=== PATIENT | male | born 1955 | race Caucasian/White ===

== ENCOUNTER 2016-11-07 21:25 | Emergency (ER) | payer OTHER ==
[~2016-11-07] VITALS: Ht 182.9 cm; Wt 72.6 kg
[2016-11-07 21:30] VITALS: BP 129/98
[2016-11-08] MEDS ORDERED: CYCLOBENZAPRINE 10 MG TABLET ONE (00:18)
[2016-11-08] MEDS ORDERED: IBUPROFEN 400 MG TABLET ONE (00:18)
[2016-11-08] MEDS ORDERED: predniSONE 20 MG TABLET ONE (00:19)
[2016-11-08] MEDS ORDERED: IBUPROFEN 400 MG TABLET PO ONE (00:30)
[2016-11-08] MEDS ORDERED: CYCLOBENZAPRINE 10 MG TABLET PO ONE (00:30)
[2016-11-08] MEDS ORDERED: predniSONE 20 MG TABLET PO ONE (00:30)
== END 2016-11-08 00:26 | disposition home or self-care (01) ==
LOC: ER 21:36
DX: M54.32 Sciatica, left side (principal)
CPT/HCPCS: 99284; A4606; J7512; Z7610

== ENCOUNTER 2017-01-15 04:02 | Emergency (ER) | payer OTHER ==
[~2017-01-15] VITALS: Ht 172.7 cm; Wt 72.6 kg
--- NOTE | 2017-01-15 04:25 | NUR ---
Anirudh skaggs in ED - 01/15/17 at [address] HERRERA AT [facility].
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
--- NOTE | 2017-01-15 04:26 | NUR ---
DR. HERRERA AT BEDSIDE FOR EVAL.
[2017-01-15] MEDS ORDERED: IBUPROFEN 400 MG TABLET PO ONE (04:30)
[2017-01-15] MEDS ORDERED: IBUPROFEN 400 MG TABLET ONE (04:36)
--- NOTE | 2017-01-15 05:23 | NUR ---
PT TO RADIOLOGY
--- NOTE | 2017-01-15 05:37 | NUR ---
PT RETURNED FROM RADIOLOGY
--- NOTE | 2017-01-15 05:37 | NUR ---
patient back from radiology.
--- NOTE | 2017-01-15 05:55 | NUR ---
Patient discharged to home in stable condition. Written and verbal after care instructions given. Patient verbalizes understanding of instruction. ambulatory with a steady gait.
[2017-01-15 05:56] VITALS: BP 132/78
== END 2017-01-15 05:56 | disposition home or self-care (01) ==
LOC: ER 04:05
DX: M25.551 Pain in right hip (principal); M54.31 Sciatica, right side; F10.10 Alcohol abuse, uncomplicated; Z98.890 Other specified postprocedural states
CPT/HCPCS: 73502; 73564; 99284; A4606; Z7610

== ENCOUNTER 2017-01-15 07:17 | Emergency (ER) | payer OTHER ==
[~2017-01-15] VITALS: Ht 182.9 cm; Wt 72.6 kg
[2017-01-15 07:22] VITALS: BP 127/66
[2017-01-15] MEDS ORDERED: HYDROCODONE/APAP 5/325MG 1 EACH TABLET ONE (07:28)
[2017-01-15] MEDS ORDERED: HYDROCODONE/APAP 5/325MG 1 EACH TABLET PO ONE (07:30)
== END 2017-01-15 07:37 | disposition home or self-care (01) ==
LOC: ER 07:19
DX: M25.551 Pain in right hip (principal); M25.552 Pain in left hip; F10.10 Alcohol abuse, uncomplicated; Z98.890 Other specified postprocedural states
CPT/HCPCS: 99283; A4606; Z7610

== ENCOUNTER 2017-02-07 21:02 | Emergency (ER) | payer OTHER ==
[~2017-02-07] VITALS: Ht 175.3 cm; Wt 68.0 kg
[2017-02-07] MEDS ORDERED: IBUPROFEN 400 MG TABLET PO ONE (22:30)
[2017-02-07] MEDS ORDERED: IBUPROFEN 400 MG TABLET ONE (22:40)
[2017-02-07 22:44] VITALS: BP 120/91
--- NOTE | 2017-02-07 22:44 | NUR ---
Patient given written and verbal discharge instructions. Patient verbalizes understanding of instructions. Patient is ambulatory with steady gait. Refuses offer of prison placement. Patient given list of available shelters in surrounding area.
== END 2017-02-07 22:45 | disposition home or self-care (01) ==
LOC: ER 21:04
DX: M25.552 Pain in left hip (principal); G89.29 Other chronic pain; F10.10 Alcohol abuse, uncomplicated; Z98.890 Other specified postprocedural states
CPT/HCPCS: 73501; 99284; A4606; Z7610; 73020

== ENCOUNTER 2017-02-13 15:08 | Emergency (ER) | payer OTHER ==
[~2017-02-13] VITALS: Ht 175.3 cm; Wt 68.0 kg
[2017-02-13 15:08] VITALS: BP 119/89
--- NOTE | 2017-02-13 15:38 | NUR ---
CALLED TO TRIAGE,NO ANSWER
== END 2017-02-13 16:35 | disposition home or self-care (01) ==
LOC: ER 15:09
DX: G89.29 Other chronic pain (principal); M25.552 Pain in left hip; F10.10 Alcohol abuse, uncomplicated
CPT/HCPCS: 99283; A4606; Z7610

== ENCOUNTER 2019-01-31 14:30 | Emergency (ER) | payer OTHER ==
[~2019-01-31] VITALS: Ht 175.3 cm; Wt 63.5 kg
[2019-01-31 15:22] VITALS: BP 140/98
[2019-01-31] MEDS ORDERED: KETOROLAC TROMETHAMINE INJ 60 MG/2 ML VIAL IM ONE (16:00)
--- NOTE | 2019-01-31 16:01 | NUR ---
Social service consult requested by KENNEDY Nguyen for homelessness. Pt. came to [facility] complaining of shoulder pain. JADA met with the pt. bedside. Pt. is alert and oriented x 4. Pt. appeared unkempt and disheveled. Pt. declined to speak with SW and appeared to be in a hurry to leave the hospital. Pt. refused to sign Homeless waiver. CHEMA Garcia and JADA signed waiver as witnesses regarding pt. refusing to sign.
== END 2019-01-31 16:14 | disposition left against medical advice (07) ==
LOC: ER 14:31
DX: M25.512 Pain in left shoulder (principal); M41.84 Other forms of scoliosis, thoracic region; F10.10 Alcohol abuse, uncomplicated; Y90.9 Presence of alcohol in blood, level not specified; Z59.0 Homelessness; Z98.890 Other specified postprocedural states; Z60.2 Problems related to living alone
CPT/HCPCS: 73030-TC

== ENCOUNTER 2019-11-08 23:15 | Emergency (ER) | payer OTHER, MEDICARE ==
[~2019-11-08] VITALS: Ht 175.3 cm; Wt 68.0 kg
[2019-11-08 23:39] VITALS: BP 123/81
== END 2019-11-08 23:58 | disposition home or self-care (01) ==
LOC: ER 23:18
DX: L08.89 Other specified local infections of the skin and subcutaneous tissue (principal); Z98.890 Other specified postprocedural states; Z60.2 Problems related to living alone

== ENCOUNTER 2019-11-12 22:33 | Emergency (ER) | payer MEDICARE, OTHER ==
[~2019-11-12] VITALS: Ht 180.3 cm; Wt 70.3 kg
[2019-11-12 22:33] VITALS: BP 132/64
--- NOTE | 2019-11-12 23:05 | NUR ---
PT DENIES BEING HOMELESS REPORTS THAT HE LIVES IN [place] WITH A FRIEND.
== END 2019-11-12 23:06 | disposition home or self-care (01) ==
LOC: ER 22:40
DX: S80.862A Insect bite (nonvenomous), left lower leg, initial encounter (principal); L03.116 Cellulitis of left lower limb; Z98.890 Other specified postprocedural states; Z60.2 Problems related to living alone; W57.XXXA Bitten or stung by nonvenomous insect and other nonvenomous arthropods, initial encounter; Y93.89 Activity, other specified; Y92.89 Other specified places as the place of occurrence of the external cause; Y99.8 Other external cause status

== ENCOUNTER 2019-12-05 07:14 | Emergency (ER) | payer MEDICARE, OTHER ==
[~2019-12-05] VITALS: Ht 180.3 cm; Wt 70.3 kg
[2019-12-05 07:17] VITALS: BP 117/85
--- NOTE | 2019-12-05 07:28 | NUR ---
SEEN AND EXAMINED BY .
--- NOTE | 2019-12-05 07:50 | NUR ---
Patient given written and verbal discharge instructions. Patient verbalizes understanding of instructions. Patient is ambulatory with steady gait. Refuses offer of skilled nursing placement. Patient given list of available shelters in surrounding area.
== END 2019-12-05 07:52 | disposition home or self-care (01) ==
LOC: ER 07:17
DX: L03.113 Cellulitis of right upper limb (principal); Z98.890 Other specified postprocedural states; Z59.0 Homelessness

== ENCOUNTER 2021-03-22 12:02 | Emergency (ER) | payer MEDICARE, OTHER ==
[~2021-03-22] VITALS: Ht 180.3 cm; Wt 70.3 kg
[2021-03-22 12:22] VITALS: BP 118/83
[2021-03-22] MEDS ORDERED: SULF1TAB48 PO (13:40)
[2021-03-22] MEDS ORDERED: MUPI22OI2 TP (13:40)
[2021-03-22] MEDS ORDERED: CEPH500C2 PO (13:40)
== END 2021-03-22 20:41 | disposition home or self-care (01) ==
LOC: ER 12:07
DX: L03.114 Cellulitis of left upper limb (principal); L03.113 Cellulitis of right upper limb; Z60.2 Problems related to living alone

== ENCOUNTER 2021-06-29 21:27 | Inpatient (IN) | payer MEDICARE, OTHER ==
[~2021-06-29] VITALS: Ht 180.3 cm; Wt 82.6 kg
[~2021-06-29 21:27] MED LIST: CEPH500C2 PO; MUPI22OI2 TP; SULF1TAB48 PO
--- NOTE | 2021-06-29 21:45 | NUR ---
[id number] [facility] C/O SOB X 2 WEEKS. PATIENT IS ALERT, ORIENTED X4. HAS SWELLING AND REDNESS ON BOTH UPPER AND LOWER EXTREMITIES. PLACED COMFORTABLY IN BED. VITALS CHECKED.
--- NOTE | 2021-06-29 21:48 | NUR ---
EKG DONE AT BEDSIDE
--- NOTE | 2021-06-29 21:52 | NUR ---
CXR DONE AT BEDSIDE
--- NOTE | 2021-06-29 22:32 | NUR ---
IV CANNULA G20 INSERTED ON LEFT AC. BLOOD DRAWN AND GIVEN TO PETROLEUM REFINING EQUIPMENT OPERATOR
--- NOTE | 2021-06-29 22:33 | NUR ---
COVID SWAB DONE AND GIVEN TO EMBROIDERY ASSISTANT
[2021-06-29 22:49] LABS: BASOPHILS % (AUTO) 0.3 % (0.0-2.0); HEMATOCRIT 44 % (39-51); HEMOGLOBIN 14.5 g/dL (13.5-17.5); LYMPHOCYTES # (AUTO) 0.9 K/uL (0.8-4.8); LYMPHOCYTES % (AUTO) 14.8 % (20.0-44.0); MEAN CORPUSCULAR HGB CONC 33 g/dl (31.0-36.0); MEAN CORPUSCULAR VOLUME 97 fL (80-96); MONOCYTES # (AUTO) 0.5 K/uL (0.1-1.30); MONOCYTES % (AUTO) 8.1 % (2.0-12.0); NEUTROPHILS # (AUTO) 4.5 K/uL (1.8-8.9); NEUTROPHILS % (AUTO) 75.8 % (43.0-81.0); PLATELET COUNT (AUTO) 256 K/uL (150-450); RED BLOOD CELL COUNT(AUTO) 4.55 MIL/uL (4.5-6.0); WHITE BLOOD COUNT (AUTO) 5.9 K/uL (4.3-11.0)
[2021-06-29] MEDS ORDERED: CEFTRIAXONE 1GM BAG (ER ONLY) 50 ML IV ONE (22:51)
[2021-06-29] MEDS ORDERED: AZITHROMYCIN 500 MG VIAL ONE (22:56)
[2021-06-29] MEDS ORDERED: CEFTRIAXONE 1GM BAG (ER ONLY) 1 GM/50 ML PIGGYBACK IV ONE (23:00)
[2021-06-29] MEDS ORDERED: AZITHROMYCIN 500 MG in IV D5W 250 ML IV ONE (23:00)
[2021-06-29 23:01] LABS: CALCIUM, SERUM 8.9 mg/dL (8.5-10.1); CARBON DIOXIDE 27 mmol/L (21-32); CHLORIDE 106 mmol/L (98-107); CREATININE 1.3 mg/dL (0.6-1.3); GLUCOSE 96 mg/dL (74-106); SODIUM SERUM 139 mmol/L (136-145); UREA NITROGEN, BLOOD 31 mg/dL (7-18)
--- NOTE | 2021-06-29 23:10 | NUR ---
LACTIC ACID 2.7
[2021-06-29 23:13] LABS: ALANINE AMINOTRANSFERASE 41 U/L (12-78); ALBUMIN 3.1 g/dL (3.4-5.0); ALKALINE PHOSPHATASE 125 U/L (46-116); ASPARTATE AMINOTRANSFERASE 38 U/L (15-37); BILIRUBIN,DIRECT 0.5 mg/dL (0.0-0.2); BILIRUBIN,TOTAL 1.9 mg/dL (0.2-1.0); TOTAL PROTEIN, SERUM 7.2 g/dL (6.4-8.2)
[2021-06-29] MEDS ORDERED: LORAZEPAM INJ 2 MG/ML VIAL ONE (23:34)
[2021-06-30] MEDS ORDERED: FUROSEMIDE 40 MG/4 ML VIAL IV ONE
[2021-06-30] MEDS ORDERED: LORAZEPAM INJ 2 MG/ML VIAL IV ONE
[2021-06-30] MEDS ORDERED: FUROSEMIDE 40 MG/4 ML VIAL ONE (00:09)
[2021-06-30] MEDS ORDERED: IV NS 0.9% 250 ML IV ONE (01:30)
[2021-06-30] MEDS ORDERED: IOHEXOL-350 100 ML VIAL IV ONE (01:30)
[2021-06-30] MEDS ORDERED: CT SWABBABLE VALVE TRANS SET 1 EA INFUS.SET MC ONE (01:30)
--- NOTE | 2021-06-30 01:41 | NUR ---
PT TAKEN TO CT
--- NOTE | 2021-06-30 02:26 | NUR ---
AUTHORIZATION RECIEVED FROM [facility] AUTH # [id number]
[2021-06-30] MEDS ORDERED: ENOXAPARIN SODIUM 80 MG/0.8 ML DISP.SYRIN SQ ONE ×2 (03:26→03:30)
[2021-06-30] MEDS ORDERED: ENOXAPARIN SODIUM 80 MG/0.8 ML DISP.SYRIN SQ SCH ×2 (03:30→21:00)
--- NOTE | 2021-06-30 03:37 | NUR ---
REPORT GIVEN TO CHEMA PELLETIER
--- NOTE | 2021-06-30 03:56 | NUR ---
PATIENT TRANSFERRED UNDER ACLS
[2021-06-30 04:00] VITALS: BP 142/96
--- NOTE | 2021-06-30 04:00 | NUR ---
RN NOTES ADMITTED A 66 Y/O MALE PATIENT FROM ER VIA GURNEY A/O X1. WITH OXYGEN INHALATION AT 2 LPM VIA NC. VITAL SIGNS TAKEN AND RECORDED AFEBRILE. SAFELY TRANSFER TO BED. WITH IV ACCESS AT L AC#20 PATENT FLUSHES WELL. COMPLETE BODY ASSESSMENT DONE. PICTURE TAKEN. ALL BELONGINGS CHECKED AND RECORDED. ALL SAFETY MEASURES IN BED ALL TIMES. HOB ELEVATED. CALL LIGHT WITHIN REACH. BED ON LOWEST POSITION AND LOCKED. WILL CLOSELY MONITOR THE PATIENT
[2021-06-30] MEDS ORDERED: HYDROCODONE/APAP 5/325MG TABLET PO PRN (05:00)
[2021-06-30] MEDS ORDERED: ACETAMINOPHEN 325 MG TABLET PO PRN (05:00)
[2021-06-30] MEDS ORDERED: ZOLPIDEM TARTRATE 5 MG TABLET PO PRN (05:00)
[2021-06-30] MEDS ORDERED: Z GUARD REMEDY 4 OZ OINT TP PRN (05:00)
[2021-06-30] MEDS ORDERED: MAG HYDROX/AL HYDROX/SIMETH 30 ML UDC PO PRN (05:00)
[2021-06-30] MEDS ORDERED: MAGNESIUM HYDROXIDE 30 ML UDC PO PRN (05:00)
[2021-06-30] MEDS ORDERED: ONDANSETRON HCL/PF 4 MG/2 ML VIAL IVP PRN (05:00)
--- NOTE | 2021-06-30 06:46 | NUR ---
RN NOTES ;PATIENT REAMINS ASLEEP AT BED. NO SOB NO DISTRESS NOTED AT THIS TIME. ALL SAFETY MEASURES IN PLACE. HOB ELEVATED. CALL LIGHT WITHIN REACH. BED ON LOWEST POSTION AND LOCKED. WILL ENDORSED TO MORNING SHIFT FOR [facility]
--- NOTE | 2021-06-30 07:00 | NUR ---
RN OPENING NOTES PATIENT ASLEEP IN BED, TOLERATING WELL ON 2 LPM O2 VIA CANNULA. TELE MONITOR IN PLACE READING SINUS TACH 108. NO S/S OF RESPIRATORY DISTRESS, PAIN, OR DISCOMFORT AT THIS TIME. SAFETY MEASURES IN PLACE: BED IN LOWEST LOCKED POSITION, SIDE RAILS UP X 2, CALL LIGHT WITHIN REACH. WILL CONTINUE TO MONITOR. L AC # 20 CLEAN, INTACT, AND FLUSHING WELL.
[2021-06-30] MEDS: PANTOPRAZOLE 40 MG TABLET.DR PO SCH ×2 (07:30→07:56)
--- NOTE | 2021-06-30 07:53 | NUR ---
RN NOTES I WAS MADE AWARE OF PATIENT BP OF 131/103 (x3 AUTOMATIC BP READINGS). I OBTAINED A MANUAL BP READING OF 130/100. PROPERTY ANALYST MADE AWARE, MD MADE AWARE. AWAITING FURTHER ORDERS.
[2021-06-30] MEDS: MUPIROCIN OINT 2% 22 GM TUBE TP SCH ×2 (08:56→13:26)
[2021-06-30 09:00] VITALS: BP 131/104
[2021-06-30] MEDS ORDERED: FUROSEMIDE 40 MG/4 ML VIAL IV SCH (09:00)
[2021-06-30] MEDS: LEVOFLOXACIN 750 MG /D5W 150ML 150 ML IV SCH ×2 (12:00→13:25)
--- NOTE | 2021-06-30 14:07 | NUR ---
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
== END 2021-06-30 14:53 | disposition left against medical advice (07) | DRG 175 ==
LOC: ER 21:31 → TELE1 06-30 02:36
PROVIDERS: ADMIT Family Medicine; ATTEND Family Medicine
DX: I26.99 Other pulmonary embolism without acute cor pulmonale (principal); N17.0 Acute kidney failure with tubular necrosis; J15.9 Unspecified bacterial pneumonia; I50.23 Acute on chronic systolic (congestive) heart failure; J98.11 Atelectasis; J90 Pleural effusion, not elsewhere classified; E87.2 Acidosis; E44.1 Mild protein-calorie malnutrition; Z20.822 Contact with and (suspected) exposure to COVID-19; Z87.81 Personal history of (healed) traumatic fracture; E88.09 Other disorders of plasma-protein metabolism, not elsewhere classified; R74.01 Elevation of levels of liver transaminase levels; I51.7 Cardiomegaly; K76.1 Chronic passive congestion of liver; E80.6 Other disorders of bilirubin metabolism; Z53.29 Procedure and treatment not carried out because of patient's decision for other reasons
CPT/HCPCS: 36415; 71045-TC; 80048-TC; 80076-TC; 83605-TC; 83880; 84484-TC; 85025-TC; 85378-TC; 87040-TC; 93307-TC; C9803; G0378; J0456; J0696; J1650; J1940; J1956; J2060; J7050; Q9967; U0003

== ENCOUNTER 2021-08-24 11:49 | Emergency (ER) | payer MEDICARE, OTHER ==
[~2021-08-24] VITALS: Ht 180.3 cm; Wt 72.6 kg
[2021-08-24 12:24] VITALS: BP 105/58
--- NOTE | 2021-08-24 12:30 | NUR ---
Pt refusing any and all interventions states "im going to leave I have an appointment later"
--- NOTE | 2021-08-24 13:10 | NUR ---
. NotifiedPatient eloped out of the door Gait even and Steady
== END 2021-08-24 13:15 | disposition home or self-care (01) ==
LOC: ER 11:51
DX: F10.129 Alcohol abuse with intoxication, unspecified (principal); Z60.2 Problems related to living alone; Z79.899 Other long term (current) drug therapy; Y90.9 Presence of alcohol in blood, level not specified

== ENCOUNTER 2021-08-31 23:45 | Emergency (ER) | payer MEDICARE, OTHER ==
[~2021-08-31] VITALS: Ht 170.2 cm; Wt 63.5 kg
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
[2021-09-01] MEDS ORDERED: SULFAMETH/TRIMETH 800/160 MG 1 UDTAB TABLET PO ONE (01:00)
[2021-09-01] MEDS ORDERED: HYDROCODONE/APAP 10/325MG TABLET PO ONE (01:00)
[2021-09-01] MEDS ORDERED: ONDANSETRON 4 MG TAB.RAPDIS SL ONE (01:00)
[2021-09-01] MEDS ORDERED: LORAZEPAM 1 MG TABLET PO ONE (01:00)
[2021-09-01] MEDS ORDERED: CEFTRIAXONE 1 G VIAL IM ONE (01:00)
[2021-09-01] MEDS ORDERED: HYDROCODONE/APAP 10/325MG TABLET ONE (01:13)
[2021-09-01] MEDS ORDERED: LORAZEPAM 1 MG TABLET ONE (01:13)
[2021-09-01] MEDS ORDERED: ONDANSETRON 4 MG TAB.RAPDIS ONE (01:14)
[2021-09-01] MEDS ORDERED: CEFTRIAXONE 1 G VIAL ONE (01:14)
[2021-09-01] MEDS ORDERED: SULFAMETH/TRIMETH 800/160 MG 1 UDTAB TABLET ONE (01:14)
--- NOTE | 2021-09-01 01:20 | NUR ---
ROCEPHIN 1 G GIVEN LEFT DELTOID IM
--- NOTE | 2021-09-01 01:27 | NUR ---
BLOOD WORK COLLECTED SENT TO LAB
--- NOTE | 2021-09-01 01:27 | NUR ---
COVID SWAB COLLECTED SENT TO LAB
[2021-09-01 01:29] LABS: BASOPHILS % (AUTO) 0.6 % (0.0-2.0); EOSINOPHILS % (AUTO) 1.3 % (0.0-6.0); HEMATOCRIT 37 % (39-51); HEMOGLOBIN 12.4 g/dL (13.5-17.5); LYMPHOCYTES # (AUTO) 0.8 K/uL (0.8-4.8); LYMPHOCYTES % (AUTO) 11.7 % (20.0-44.0); MEAN CORPUSCULAR HGB CONC 33 g/dl (31.0-36.0); MEAN CORPUSCULAR VOLUME 94 fL (80-96); MONOCYTES # (AUTO) 0.6 K/uL (0.1-1.30); MONOCYTES % (AUTO) 8.6 % (2.0-12.0); NEUTROPHILS # (AUTO) 5.3 K/uL (1.8-8.9); NEUTROPHILS % (AUTO) 77.8 % (43.0-81.0); PLATELET COUNT (AUTO) 342 K/uL (150-450); RED BLOOD CELL COUNT(AUTO) 3.93 MIL/uL (4.5-6.0); WHITE BLOOD COUNT (AUTO) 6.8 K/uL (4.3-11.0)
[2021-09-01 02:13] LABS: MAGNESIUM 1.5 mg/dL (1.8-2.4)
[2021-09-01 02:14] LABS: CALCIUM, SERUM 7.6 mg/dL (8.5-10.1); CARBON DIOXIDE 24 mmol/L (21-32); CHLORIDE 106 mmol/L (98-107); CREATININE 0.9 mg/dL (0.6-1.3); GLUCOSE 89 mg/dL (74-106); POTASSIUM 3.6 mmol/L (3.5-5.1); SODIUM SERUM 143 mmol/L (136-145); UREA NITROGEN, BLOOD 17 mg/dL (7-18)
[2021-09-01 02:37] LABS: ALANINE AMINOTRANSFERASE 26 U/L (12-78); ALBUMIN 1.7 g/dL (3.4-5.0); ALKALINE PHOSPHATASE 151 U/L (46-116); ASPARTATE AMINOTRANSFERASE 27 U/L (15-37); BILIRUBIN,DIRECT 0.2 mg/dL (0.0-0.2); BILIRUBIN,TOTAL 0.6 mg/dL (0.2-1.0); TOTAL PROTEIN, SERUM 5.8 g/dL (6.4-8.2)
[2021-09-01] MEDS ORDERED: CEPH500T PO (03:42)
[2021-09-01] MEDS ORDERED: SULF1TAB48 PO (03:42)
[2021-09-01] MEDS ORDERED: HYDR-4209 PO (03:42)
[2021-09-01 04:21] VITALS: BP 119/77
--- NOTE | 2021-09-01 06:08 | NUR ---
Patient discharged to home in stable condition. Written and verbal after care instructions given. Patient verbalizes understanding of instruction.
== END 2021-09-01 06:09 | disposition home or self-care (01) ==
LOC: ER 23:48
DX: L03.116 Cellulitis of left lower limb (principal); I50.9 Heart failure, unspecified; Z59.00 Homelessness unspecified; R60.0 Localized edema; F10.20 Alcohol dependence, uncomplicated; Z20.822 Contact with and (suspected) exposure to COVID-19; L97.329 Non-pressure chronic ulcer of left ankle with unspecified severity
CPT/HCPCS: 36415; 71045; 80048; 80076; 80320; 83735; 83880; 84484 ×2; 85025; 85730; 87040 ×2; 87426; 93005; 96372; 99285; J0696; Q0162; C9803; G0480

== ENCOUNTER 2021-09-01 19:38 | Emergency (ER) | payer MEDICARE, OTHER ==
[~2021-09-01] VITALS: Ht 167.6 cm; Wt 63.5 kg
[~2021-09-01 19:38] MED LIST changes: +CEPH500T PO; +HYDR-4209 PO
[2021-09-01 19:51] VITALS: BP 129/78
--- NOTE | 2021-09-01 21:43 | NUR ---
Patient discharged to home in stable condition. Written and verbal after care instructions given. Patient verbalizes understanding of instruction.
== END 2021-09-01 21:43 | disposition home or self-care (01) ==
LOC: ER 19:39
DX: L03.119 Cellulitis of unspecified part of limb (principal); Z59.00 Homelessness unspecified

== ENCOUNTER 2021-10-01 22:45 | Emergency (ER) | payer MEDICARE, OTHER ==
[~2021-10-01] VITALS: Ht 180.3 cm; Wt 90.7 kg
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
[2021-10-01] MEDS ORDERED: SULFAMETH/TRIMETH 800/160 MG 1 UDTAB TABLET ONE (23:08)
[2021-10-01] MEDS ORDERED: CEPHALEXIN MONOHYDRATE 500 MG CAPSULE PO ONE ×2 (23:08→23:30)
[2021-10-01] MEDS ORDERED: SULFAMETH/TRIMETH 800/160 MG 1 UDTAB TABLET PO ONE (23:30)
--- NOTE | 2021-10-01 23:31 | NUR ---
Patient discharged to home in stable condition. Written and verbal after care instructions given. Patient verbalizes understanding of instruction. pt ambulatory with a steady gait
[2021-10-01 23:32] VITALS: BP 134/80
== END 2021-10-01 23:35 | disposition home or self-care (01) ==
LOC: ER 22:47
DX: L03.116 Cellulitis of left lower limb (principal); L03.115 Cellulitis of right lower limb; Z59.00 Homelessness unspecified; Z79.899 Other long term (current) drug therapy

== ENCOUNTER 2021-10-23 12:41 | Emergency (ER) | payer MEDICARE, OTHER ==
[~2021-10-23] VITALS: Ht 180.3 cm; Wt 54.4 kg
--- NOTE | 2021-10-23 12:44 | NUR ---
DR NOVAK AT BEDSIDE
[2021-10-23 15:17] LABS: BASOPHILS % (AUTO) 0.3 % (0.0-2.0); EOSINOPHILS % (AUTO) 4.8 % (0.0-6.0); HEMATOCRIT 35 % (39-51); HEMOGLOBIN 11.4 g/dL (13.5-17.5); LYMPHOCYTES # (AUTO) 0.8 K/uL (0.8-4.8); LYMPHOCYTES % (AUTO) 13.1 % (20.0-44.0); MEAN CORPUSCULAR HGB CONC 33 g/dl (31.0-36.0); MEAN CORPUSCULAR VOLUME 102 fL (80-96); MONOCYTES # (AUTO) 0.5 K/uL (0.1-1.30); MONOCYTES % (AUTO) 8.7 % (2.0-12.0); NEUTROPHILS # (AUTO) 4.2 K/uL (1.8-8.9); NEUTROPHILS % (AUTO) 73.1 % (43.0-81.0); PLATELET COUNT (AUTO) 361 K/uL (150-450); RED BLOOD CELL COUNT(AUTO) 3.44 MIL/uL (4.5-6.0); WHITE BLOOD COUNT (AUTO) 5.8 K/uL (4.3-11.0)
[2021-10-23 15:29] LABS: ALBUMIN 2.8 g/dL (3.4-5.0); BILIRUBIN,DIRECT 0.2 mg/dL (0.0-0.2); BILIRUBIN,TOTAL 0.5 mg/dL (0.2-1.0); CALCIUM, SERUM 8.9 mg/dL (8.5-10.1); CREATININE 1.7 mg/dL (0.6-1.3); POTASSIUM 3.9 mmol/L (3.5-5.1); TOTAL PROTEIN, SERUM 7.4 g/dL (6.4-8.2)
[2021-10-23 16:21] LABS: EOSINOPHILS % (MANUAL) 4 % (0-4); LYMPHOCYTES % (MANUAL) 9 % (16-48); MONOCYTES % (MANUAL) 5 % (0-11.0); NEUTROPHILS % (MANUAL) 82 (42-76)
--- NOTE | 2021-10-24 00:01 | NUR ---
PT SLEEPING IN BED. IN NO ACUTE DISTRESS AT THIS TIME. VSS. SAFETY MEASURES IN [place]. WILL CONTINUE TO MONITOR.
--- NOTE | 2021-10-24 04:43 | NUR ---
Patient discharged to home in stable condition. Written and verbal after care instructions given. Patient verbalizes understanding of instruction.
[2021-10-24 04:44] VITALS: BP 119/68
== END 2021-10-24 04:45 | disposition home or self-care (01) ==
LOC: ER 12:43
DX: F10.129 Alcohol abuse with intoxication, unspecified (principal); L03.116 Cellulitis of left lower limb; Z59.00 Homelessness unspecified; Z98.890 Other specified postprocedural states; Z60.2 Problems related to living alone; Y90.0 Blood alcohol level of less than 20 mg/100 ml
CPT/HCPCS: 99285; 85025; 80048; 80076; 85007; 85652; 36415; 86140; 80143; 80320; J7042; A6253; A6403; G0480